=== PATIENT | female | born 1980 | race Two or more races ===

== ENCOUNTER 2024-05-02 09:51 | Outpatient (CLI) | payer OTHER | END 2024-05-02 09:58 | disposition home or self-care (01) | LOC: RAD 09:51 | PROVIDERS: ATTEND Orthopaedic Surgery | DX: S92.254K Nondisplaced fracture of navicular [scaphoid] of right foot, subsequent encounter for fracture with nonunion (principal) ==

== ENCOUNTER 2024-05-23 11:31 | Outpatient (CLI) | payer OTHER | END 2024-05-23 13:58 | disposition home or self-care (01) | LOC: TOM 11:31 | PROVIDERS: ATTEND Orthopaedic Surgery | DX: S92.254K Nondisplaced fracture of navicular [scaphoid] of right foot, subsequent encounter for fracture with nonunion (principal) ==